=== PATIENT | male | born 1985 | race African-American/Black ===

== ENCOUNTER 2018-08-13 09:47 | Emergency (ER) | payer MEDICAID, OTHER ==
[~2018-08-13] VITALS: Ht 172.7 cm; Wt 73.0 kg
[2018-08-13] MEDS ORDERED: BACITRACIN ZINC OINT UDPKT TOP ONE (10:45)
[2018-08-13] MEDS ORDERED: TETANUS, DIPHTHERIA, PERTUSSIS VAC/PF 0.5ML (>7YR OLD) IM ONE (10:45)
[2018-08-13 12:22] VITALS: BP 129/74
== END 2018-08-13 12:26 | disposition home or self-care (01) ==
LOC: ER 10:27
DX: S81.852A Open bite, left lower leg, initial encounter (principal); F17.210 Nicotine dependence, cigarettes, uncomplicated; F12.10 Cannabis abuse, uncomplicated; Z87.828 Personal history of other (healed) physical injury and trauma; W54.0XXA Bitten by dog, initial encounter; Y93.89 Activity, other specified; Y92.89 Other specified places as the place of occurrence of the external cause
CPT/HCPCS: 73590; 90471; 90715; 99283

== ENCOUNTER 2021-02-26 10:58 | Emergency (ER) | payer MEDICAID ==
[~2021-02-26] VITALS: Ht 172.7 cm; Wt 73.0 kg
[2021-02-26] MEDS ORDERED: LIDOCAINE HCL/PF 1% 10 MG/ML 5ML VIAL INFIL ONE (11:30)
[2021-02-26] MEDS ORDERED: TETANUS, DIPHTHERIA, PERTUSSIS VAC/PF 0.5ML (>7YR OLD) IM ONE (11:30)
[2021-02-26] MEDS ORDERED: BACITRACIN ZINC OINT UDPKT TOP ONE (11:30)
[2021-02-26] MEDS ORDERED: HYDROCODONE/ACETAMINOPHEN 5/325MG TABLET PO ONE (11:30)
[2021-02-26] MEDS ORDERED: AMOXICILLIN/POTASSIUM CLAVULANATE 875/125MG TAB PO ONE (11:30)
[2021-02-26] MEDS ORDERED: IBUP-2029 MT (12:55)
[2021-02-26] MEDS ORDERED: HYDR-4001 MT ×2 (12:55→15:44)
[2021-02-26] MEDS ORDERED: AMOX-424 MT (12:55)
[2021-02-26] MEDS ORDERED: ONDANSETRON 4MG ODT PO ONE (13:15)
[2021-02-26] MEDS ORDERED: MORPHINE SULFATE 10 MG/ML CPJ IM ONE (13:15)
[2021-02-26 13:39] VITALS: BP 121/59
== END 2021-02-26 13:39 | disposition home or self-care (01) ==
LOC: ER 10:58
DX: S61.412A Laceration without foreign body of left hand, initial encounter (principal); F12.10 Cannabis abuse, uncomplicated; W54.0XXA Bitten by dog, initial encounter; Y93.89 Activity, other specified; Y92.89 Other specified places as the place of occurrence of the external cause; Y99.8 Other external cause status; Z79.899 Other long term (current) drug therapy
CPT/HCPCS: 12002; 73110; 73130; 90471; 90715; 99284; J3490; 29125

== ENCOUNTER 2021-02-28 09:13 | Emergency (ER) | payer MEDICAID ==
[~2021-02-28] VITALS: Ht 172.7 cm; Wt 77.0 kg
[~2021-02-28 09:13] MED LIST: AMOX-424 MT; HYDR-4001 MT; IBUP-2029 MT
[2021-02-28 09:20] VITALS: BP 114/73
[2021-02-28] MEDS ORDERED: BACITRACIN ZINC OINT UDPKT TOP ONE (09:45)
== END 2021-02-28 10:20 | disposition home or self-care (01) ==
LOC: ER 09:13
DX: Z48.00 Encounter for change or removal of nonsurgical wound dressing (principal); F12.10 Cannabis abuse, uncomplicated; Z98.890 Other specified postprocedural states
CPT/HCPCS: 99282; Z7610; A4565